=== PATIENT | male | born 1945 | race Caucasian/White ===

== ENCOUNTER 2019-01-14 07:07 | Day surgery (SDC) | payer MEDICARE, OTHER ==
--- NOTE | 2019-01-08 13:22 | HP ---
PREOPERATIVE HISTORY AND PHYSICAL: DATE OF ADMISSION: 01/14/19 ATTENDING PHYSICIAN: Dr. Virginia Lilly* (dictated by CRISTIANO Deluca). CHIEF COMPLAINT: Left hand pain and paresthesia. HISTORY OF PRESENT ILLNESS: The patient is a 73-year-old male who has had ongoing carpal tunnel syndrome symptoms in the left upper extremity. He presented to see Dr. Lilly on 01/06/19 after having EMG nerve conduction study of the left upper extremity that confirmed severe carpal tunnel syndrome. The patient has elected to proceed with surgical release and is scheduled for surgery with Dr. Lilly on 01/14/19. PAST MEDICAL HISTORY: Significant for: 1. Hypertension. 2. High cholesterol. 3. Arthritis. 4. Depression. PAST SURGICAL HISTORY: 1. Laminectomy, 06/10, at L2-3. 2. 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 3. Surgery for a fractured elbow in 1953. CURRENT MEDICATIONS: 1. Simvastatin 20 mg 1 p.o. daily. 2. Bupropion XL 300 mg p.o. daily. 3. Aspirin 81 mg every other day. 4. Cialis 5 mg 1 p.o. every day. 5. Vitamin B6 100 mg 1 cap p.o. daily. 6. Probiotic 1 tab p.o. daily. 7. Lisinopril 20 mg 1 p.o. daily. 8. Vitamin D 2000 units 1 p.o. daily. ALLERGIES: No known drug allergies. Allergies to jelly fish sting, bee sting, and pollen. FAMILY HISTORY: Significant for maternal uncle with diabetes. Father with a history of heart disease. Maternal grandmother with history of stroke. Maternal aunt with history of cancer. SOCIAL HISTORY: The patient lives with his spouse. Retired assistant professor of art. He quit smoking cigarettes roughly 30 years ago. He drinks roughly 10 alcoholic beverages per week. He is right-hand dominant. REVIEW OF SYSTEMS: Reviewed with the patient today. Positive for chronic right shoulder pain, peripheral neuropathy in both of his feet, seasonal allergies, and depression. PHYSICAL EXAMINATION GENERAL: He is alert and oriented x3, in no acute distress. Pleasant and cooperative. HEENT: PERRLA. LUNGS: Clear to auscultation without wheezes. HEART: Regular rate and rhythm. Positive murmur auscultated. ABDOMEN: Nontender, soft. Normoactive bowel sounds x4 quadrants. EXTREMITIES: Left upper extremity: There are paresthesias in the median nerve distribution. No thenar or hypothenar atrophy noted. No open lesions or excoriations. IMPRESSION: Carpal tunnel syndrome, left upper extremity. PLAN: The patient is scheduled for left carpal tunnel release with Dr. Lilly on 01/14/19. He will be scheduled outpatient. He will follow up postoperatively in roughly 10 days in the office for re-evaluation. CRISTIANO DELUCA [id number]/[facility] #: [id number] MTDD
[~2019-01-14 07:07] MED LIST: Buffered Lidocaine 1% SYRIN* 1 ML/SYRINGE INTRADERM ONE; Dexamethasone IV* 4 MG/ML 1 ML (4 MG) IV SLOW PU ONE; Dexamethasone IV* 4 MG/ML 1 ML (4 MG) ONE; Famotidine IV* 10 MG/ML 2 ML (20 mg) IV ONE; Famotidine IV* 10 MG/ML 2 ML (20 mg) ONE; Lactated Ringers 1000 ML Bag* 1,000 ML IV SCH
[2019-01-14] MEDS ORDERED: Naloxone* 0.4 MG/ML 1 ML VIAL IV PRN (07:12)
[2019-01-14] MEDS ORDERED: Ketorolac INJ* 30 MG/ML 1 ML VIAL IV PRN (07:12)
[2019-01-14] MEDS ORDERED: Acetaminophen TAB* 325 MG PO PRN (07:12)
[2019-01-14] MEDS ORDERED: Ondansetron INJ* 2 MG/ML VIAL IV PRN (07:12)
[2019-01-14] MEDS ORDERED: fentaNYL* 50 MCG/ML 2 ML VIAL (100 MCG VIAL) IV PRN (07:12)
[2019-01-14] MEDS ORDERED: HYDROcodone/ACETAMIN 5-325 MG* 1 TAB PO PRN (07:12)
[2019-01-14] MEDS ORDERED: oxyCODONE/Acetamin 5/325 MG* TAB PO PRN (07:12)
[2019-01-14] MEDS ORDERED: Propofol* 10 MG/ML 20 ML BTL ONE (07:58)
[2019-01-14] MEDS ORDERED: fentaNYL* 50 MCG/ML 2 ML VIAL (100 MCG VIAL) ONE (07:58)
[2019-01-14] MEDS ORDERED: Lidocaine 2% PF * 5 ML VIAL ONE (07:58)
[2019-01-14] MEDS ORDERED: Midazolam* 1 MG/ML 2 ML VIAL (2 MG) ONE (07:58)
[2019-01-14 09:22] VITALS: BP 109/85
--- NOTE | 2019-01-14 15:46 | OP ---
DATE OF OPERATION: 01/14/19 [facility] DATE OF : 41 SURGEON: Virginia Lilly MD ACTIVITY THERAPIST: CRISTIANO Gonzalez ANESTHESIA: Local MAC. PRE-OP DIAGNOSIS: Left carpal tunnel syndrome. POST-OP DIAGNOSIS: Left carpal tunnel syndrome. OPERATIVE PROCEDURE: Left carpal tunnel release. ESTIMATED BLOOD LOSS: Zero. TOURNIQUET TIME: About 10 minutes. INDICATION FOR PROCEDURE: Artur is a 73-year-old man who has numbness and tingling in the median nerve distribution of his left hand. He presents for left carpal tunnel release. DESCRIPTION OF PROCEDURE: The patient was brought to the operating room, was given a sedation anesthetic and a local infiltration of 10 cc of 1% plain lidocaine in the palm of his left hand. The skin of his left hand and forearm was prepped and draped in the usual sterile fashion. The hand and forearm were exsanguinated and the tourniquet elevated to 250 mmHg. A longitudinal incision was made in the palm in line with the ring finger. We dissected through the subcutaneous tissue down to the transverse carpal ligament. The ligament was divided sharply with a knife and then more proximally with the scissors. The nerve was dissected free from the surrounding tissue and there was an area of moderate compression at the mid portion of the ligament. The wound was irrigated and the skin edges were reapproximated with 4-0 nylon suture. The wound was dressed with Xeroform, 4x4, Webril, and an Chato wrap. The patient tolerated the procedure well and was brought to the recovery room in good condition. [id number]/[facility] #: [id number] MARYJO
== END 2019-01-14 09:42 | disposition home or self-care (01) ==
LOC: OREAST 07:07
PROVIDERS: ATTEND Orthopaedic Surgery
DX: G56.02 Carpal tunnel syndrome, left upper limb (principal); I10 Essential (primary) hypertension; E78.00 Pure hypercholesterolemia, unspecified; M19.90 Unspecified osteoarthritis, unspecified site; E78.5 Hyperlipidemia, unspecified; F32.9 Major depressive disorder, single episode, unspecified
CPT/HCPCS: J1100; J2250; J2704; J3010